=== PATIENT | female | born 1945 | race Caucasian/White ===

== ENCOUNTER 2016-11-04 20:14 | Emergency (ER) | payer MEDICARE, OTHER ==
[~2016-11-04] VITALS: Ht 170.2 cm; Wt 71.7 kg
[2016-11-04 21:21] LABS: BLOOD UREA NITROGEN 14 mg/dL (7-18)
[2016-11-04] MEDS ORDERED: NITROGLYCERIN OINT 2%, 1GM TP ONE (23:00)
[2016-11-04] MEDS ORDERED: LABETALOL 5MG/ML, 20ML IVPush ONE (23:00)
[2016-11-04 23:19] LABS: IS PT STATUS REG ER OR PRE ER? YES
[2016-11-04] MEDS ORDERED: AMIT100T PO (23:41)
[2016-11-04] MEDS ORDERED: TOCI80VI IV (23:41)
[2016-11-04] MEDS ORDERED: ESOM20CA PO (23:41)
[2016-11-04] MEDS ORDERED: OMNIPAQUE 350 MG/ML, 100ML BOTTLE ONE (23:59)
[2016-11-05] MEDS ORDERED: LABETALOL 5MG/ML, 20ML IVPush ONE (00:30)
[2016-11-05] MEDS ORDERED: LABETALOL 5MG/ML, 20ML ONE (00:38)
[2016-11-05 00:55] VITALS: BP 137/91
== END 2016-11-05 01:30 | disposition home or self-care (01) ==
LOC: ED 21:09
DX: I10 Essential (primary) hypertension (principal); M54.2 Cervicalgia
CPT/HCPCS: 36415; 70498; 71010; 80048; 82040; 84484; 85025; 93005; 96374; 99285; Q9967

== ENCOUNTER 2017-06-06 01:07 | Emergency (ER) | payer MEDICARE, OTHER ==
[~2017-06-06] VITALS: Ht 170.2 cm; Wt 68.6 kg
[~2017-06-06 01:07] MED LIST: AMIT100T PO; ESOM20CA PO; TOCI80VI IV
[2017-06-06 01:08] VITALS: BP 144/90
== END 2017-06-06 02:07 | disposition home or self-care (01) ==
LOC: ED 01:31
DX: G44.039 Episodic paroxysmal hemicrania, not intractable (principal); I10 Essential (primary) hypertension
CPT/HCPCS: 99283

== ENCOUNTER → 2020-06-02 | Outpatient (CLI) | payer MEDICARE, OTHER | END | disposition home or self-care (01) | LOC: CFH 08:18 | PROVIDERS: ATTEND Internal Medicine Cardiovascular Disease | DX: I08.8 Other rheumatic multiple valve diseases (principal); I10 Essential (primary) hypertension; E78.5 Hyperlipidemia, unspecified; Z87.891 Personal history of nicotine dependence | CPT/HCPCS: 78452; 93017; 93306; A9502 ==